=== PATIENT | male | born 1985 | race African-American/Black ===

== ENCOUNTER 2021-11-06 13:59 | Emergency (ER) | payer SELFPAY ==
[~2021-11-06] VITALS: Ht 180.3 cm; Wt 70.3 kg
--- NOTE | 2021-11-06 14:07 | NUR ---
BIB [facility], BLOOD NOTED IN HIS URINE THIS MORNING, ASKING FOR FOOD. VITALS WITHIN NORMAL LIMITS, NO RESP DISTRESS NOTED.
--- NOTE | 2021-11-06 14:15 | NUR ---
DR TALLEY AT BEDSIDE
--- NOTE | 2021-11-06 14:17 | NUR ---
URINE COLLECTED AND SENT
[2021-11-06 14:35] LABS: BASOPHILS % (AUTO) 0.7 % (0.0-2.0); EOSINOPHILS % (AUTO) 0.2 % (0.0-6.0); HEMATOCRIT 38 % (39-51); LYMPHOCYTES # (AUTO) 1.4 K/uL (0.8-4.8); LYMPHOCYTES % (AUTO) 22.6 % (20.0-44.0); MEAN CORPUSCULAR HGB CONC 32 g/dl (31.0-36.0); MEAN CORPUSCULAR VOLUME 86 fL (80-96); MONOCYTES # (AUTO) 0.6 K/uL (0.1-1.30); NEUTROPHILS # (AUTO) 4.2 K/uL (1.8-8.9); NEUTROPHILS % (AUTO) 66.5 % (43.0-81.0); PLATELET COUNT (AUTO) 212 K/uL (150-450); RED BLOOD CELL COUNT(AUTO) 4.38 MIL/uL (4.5-6.0); WHITE BLOOD COUNT (AUTO) 6.3 K/uL (4.3-11.0)
[2021-11-06 14:49] LABS: BILIRUBIN,URINE NEGATIVE (NEGATIVE); COLOR,URINE YELLOW (YELLOW); LEUKOCYTE ESTERASE ,URINE NEGATIVE (NEGATIVE); NITRITE, URINE NEGATIVE (NEGATIVE); PROTEIN,URINE TRACE mg/dl (NEGATIVE); UGLUCOSE NEGATIVE (NEGATIVE)
[2021-11-06 15:02] LABS: CALCIUM, SERUM 8.3 mg/dL (8.5-10.1); CREATININE 1.2 mg/dL (0.6-1.3); POTASSIUM 3.6 mmol/L (3.5-5.1)
[2021-11-06 15:32] LABS: BACTERIA,URINE None seen /HPF (None Seen); RBC,URINE 0-2 /HPF (0-2); WBC,URINE 0-2 /HPF (0-3)
[2021-11-06 15:33] LABS: SQUAMOUS EPITHELIAL CELL,UR 0-2 /HPF (None Seen)
[2021-11-06] MEDS ORDERED: AMOX-430 PO (15:48)
[2021-11-06] MEDS ORDERED: AMOX/CLAVULANATE 875 MG TABLET ONE (15:55)
--- NOTE | 2021-11-06 15:57 | NUR ---
PO augmention given as ordered by Dr. Chilel.
--- NOTE | 2021-11-06 15:58 | NUR ---
ADDENDUM/Correction PO AUGMENTIN given as ordered
[2021-11-06] MEDS ORDERED: AMOX/CLAVULANATE 875 MG TABLET PO ONE (16:00)
--- NOTE | 2021-11-06 16:05 | NUR ---
Patient discharged to home in stable condition. Written and verbal after care instructions given. Patient verbalizes understanding of instruction.
[2021-11-06 16:07] VITALS: BP 121/75
== END 2021-11-06 16:07 | disposition home or self-care (01) ==
LOC: ER 14:02
DX: K52.9 Noninfective gastroenteritis and colitis, unspecified (principal); N20.0 Calculus of kidney; Z60.2 Problems related to living alone
CPT/HCPCS: 36415; 80048-TC; 81001; 85025-TC

== ENCOUNTER 2021-12-04 01:52 | Emergency (ER) | payer OTHER ==
[~2021-12-04] VITALS: Ht 188 cm; Wt 72.6 kg
[~2021-12-04 01:52] MED LIST: AMOX-430 PO
--- NOTE | 2021-12-04 01:55 | NUR ---
[id number]. FROM [facility] DIFFUSED ABD PAIN X 2 DAYS -N/V/D. PT A/OX4. TOLERATING R/A WELL WITH NO SOB. RESP EVEN AND NON LABORED. CONNECTED PT TO POX AND MONITOR. [employer] AT PT'S BEDSIDE
[2021-12-04] MEDS ORDERED: ONDANSETRON HCL/PF 4 MG/2 ML VIAL IV ONE (02:00)
[2021-12-04] MEDS ORDERED: KETOROLAC TROMETHAMINE INJ 30 MG/ML VIAL IV ONE (02:00)
[2021-12-04] MEDS ORDERED: IV NS 0.9% 500 ML BAG IV ONE (02:00)
[2021-12-04] MEDS ORDERED: KETOROLAC TROMETHAMINE 15 MG/ML VIAL ONE (02:13)
[2021-12-04] MEDS ORDERED: ONDANSETRON HCL/PF 4 MG/2 ML VIAL ONE (02:13)
--- NOTE | 2021-12-04 02:32 | NUR ---
PT TAKEN TO CT VIA [facility]
--- NOTE | 2021-12-04 02:42 | NUR ---
PT RETURNED TO ER BED [address]
--- NOTE | 2021-12-04 03:00 | NUR ---
OFFERED PT URINE; NOT ABLE TO URINATE. WILL F/U
[2021-12-04 03:13] LABS: BASOPHILS % (AUTO) 0.2 % (0.0-2.0); EOSINOPHILS % (AUTO) 1.9 % (0.0-6.0); HEMATOCRIT 42 % (39-51); HEMOGLOBIN 13.5 g/dL (13.5-17.5); MEAN CORPUSCULAR HGB CONC 32 g/dl (31.0-36.0); MEAN CORPUSCULAR VOLUME 86 fL (80-96); MONOCYTES # (AUTO) 0.4 K/uL (0.1-1.30); MONOCYTES % (AUTO) 10.3 % (2.0-12.0); NEUTROPHILS # (AUTO) 2.3 K/uL (1.8-8.9); NEUTROPHILS % (AUTO) 60.6 % (43.0-81.0); PLATELET COUNT (AUTO) 198 K/uL (150-450); RED BLOOD CELL COUNT(AUTO) 4.87 MIL/uL (4.5-6.0); WHITE BLOOD COUNT (AUTO) 3.8 K/uL (4.3-11.0)
[2021-12-04 03:46] LABS: CALCIUM, SERUM 9.1 mg/dL (8.5-10.1); CREATININE 1.1 mg/dL (0.6-1.3); POTASSIUM 4.5 mmol/L (3.5-5.1)
[2021-12-04 03:56] LABS: ALBUMIN 3.6 g/dL (3.4-5.0); BILIRUBIN,DIRECT 0.1 mg/dL (0.0-0.2); BILIRUBIN,TOTAL 0.2 mg/dL (0.2-1.0); TOTAL PROTEIN, SERUM 8.7 g/dL (6.4-8.2)
[2021-12-04] MEDS ORDERED: DIATR MEGLU/DIATRIZOATE SODIUM 30 ML BOTTLE (GASTROGRAPHIN) ONE (04:22)
--- NOTE | 2021-12-04 04:30 | NUR ---
ADMINISTERED GASTRAGAFIN PO PER DR. LAGOS ORDER FOR CT ABDOMEN W CONTRAST. WILL NOTIFY RADIOLOGY ONCE PT FINISHES
--- NOTE | 2021-12-04 04:57 | NUR ---
URINE COLLECTED AND SENT TO LAB
--- NOTE | 2021-12-04 05:26 | NUR ---
PT NONCOMPLIANT DRINKING GASTRAGAFIN CONTRAST; PER DR. DEMOND BEAR FOR PT TO ONLY HAVE CONTRAST IV FOR CT
[2021-12-04] MEDS ORDERED: CT SWABBABLE VALVE TRANS SET 1 EA INFUS.SET MC ONE (05:30)
[2021-12-04] MEDS ORDERED: IOHEXOL-300 100 ML VIAL IV ONE (05:30)
[2021-12-04] MEDS ORDERED: IV NS 0.9% 250 ML IV ONE (05:30)
--- NOTE | 2021-12-04 05:40 | NUR ---
PT TAKEN TO CT VIA [facility]
--- NOTE | 2021-12-04 06:47 | NUR ---
[facility]. Written and verbal after care instructions given. Patient verbalizes understanding of instruction. IV removed. Catheter intact and site benign. Pressure and 4x4 applied to site. No bleeding noted.
[2021-12-04 06:48] VITALS: BP 104/43
== END 2021-12-04 06:49 | disposition home or self-care (01) ==
LOC: ER 01:53
DX: R10.84 Generalized abdominal pain (principal); R11.2 Nausea with vomiting, unspecified; F17.200 Nicotine dependence, unspecified, uncomplicated; Z60.2 Problems related to living alone
CPT/HCPCS: 99285; 71260; 96374; 96361; 96375; 74177; 85025; 80048; 83690; 80076; 36415; 74176; J2405; J7050; J7040; Q9963; J1885; Q9967